=== PATIENT | female | born 1990 | race American Indian/Alaskan Native ===

== ENCOUNTER 2019-08-18 14:51 | Emergency (ER) | payer SELFPAY ==
[2019-08-18] MEDS ORDERED: SODIUM CHLORIDE 0.9% 500 ML 500 ML IV ONE (15:40)
[2019-08-18] MEDS ORDERED: ACETAMINOPHEN 325 MG TAB PO ONE (15:42)
[2019-08-18] MEDS ORDERED: ACETAMINOPHEN 325 MG TAB ONE (15:46)
[2019-08-18 16:08] VITALS: BP 116/62
--- NOTE | 2019-08-18 16:09 | Event Note ---
ED Screening Note Date of service: 08/18/19 Time: 16:06 ED Screening Note: This is a 28 y.o. F. that presents to the ER with fever, congestion, cough, and myalgia x 2 days. Taking Dayquil PMH of sickle cell and bronchitis This initial assessment/diagnostic orders/clinical plan/treatment(s) is/are subject to change based on patients health status, clinical progression and re- assessment by fellow clinical providers in the ED. Further treatment and workup at subsequent clinical providers discretion. Patient/guardian urged not to elope from the ED as their condition may be serious if not clinically assessed and managed. Initial orders include: Labs, EKG, & CXR
[2019-08-18 16:15] LABS: INR 1.12 (0.87-1.13)
--- NOTE | 2019-08-18 16:23 | XRay Report ---
CHEST 1 VIEW INDICATION: Possible sepsis, fever. COMPARISON: None. FINDINGS: Support devices: None. Heart: Within normal limits. Lungs/Pleura: No acute air space or interstitial disease. Additional findings: None. IMPRESSION: No evidence of acute cardiopulmonary disease. Signer Name: Mart Morton MD Signed: 08/18/2019 4:19 PM Workstation Name: [id number]
[2019-08-18 16:27] LABS: Alanine Aminotransferase 18 units/L (7-56); Albumin 4.1 g/dL (3.9-5); BUN/Creatinine Ratio 8; Blood Urea Nitrogen 6 mg/dL (7-17); Hemolysis Index 6
[2019-08-18 16:34] LABS: Hematocrit 39.1 % (30.3-42.9); Mean Corpuscular HGB Conc 33 % (30-34); Mean Corpuscular Volume 81 fl (79-97); Platelet Count 181 K/mm3 (140-440); Red Blood Count 4.85 M/mm3 (3.65-5.03); Red Cell Distribution Width 14.1 % (13.2-15.2)
[2019-08-18 17:41] LABS: Basophils % (Manual) 0 % (0.0-1.8); Eosinophils % (Manual) 0 % (0.0-4.3); Total Cells Counted 100
[2019-08-18 17:42] LABS: Platelet Estimate Consistent w Auto; RBC Morphology Normal
[2019-08-18 18:34] LABS: Bilirubin,Urine NEG (Negative); Blood,Urine NEG (Negative); Color,Urine Yellow (Yellow); Protein,Urine <15 mg/dL mg/dL (Negative); Urobilinogen,Urine < 2.0 mg/dL (<2.0)
--- NOTE | 2019-08-18 21:40 | Emergency Department Report ---
- General Chief Complaint: Upper Respiratory Infection Stated Complaint: FEVER/COLD SYMPTOMS Time Seen by Provider: 08/18/19 21:06 Source: patient Mode of arrival: Ambulatory Limitations: No Limitations - History of Present Illness Initial Comments: Patient is a 28-year-old female up since emergency room with complaints of fever, cough, runny nose, chills times days. Patient states her symptoms are worsening. Patient denies chest pain. Patient denies shortness of breath. [place] ken denies nausea vomiting. Patient denies abdominal pain. Patient states her symptoms are better with rest and worse with exertion. MD Complaint: fever, cough, rhinorrhea -: Sudden, days(s) (2) Severity: severe Severity scale (0 -10): 10 Consistency: constant Improves With: NSAID, OTC cold medicine, rest Worsens With: activity Associated Symptoms: fever, chills, myalgias, rhinorrhea, cough. denies: diaphoresis, headache, nasal congestion, sore throat, stiff neck, chest pain, shortness of breath, abdominal pain, nausea, vomiting, diarrhea, dysuria, rash, confusion, right sweats, weight loss, hoarseness, ear pain Treatments Prior to Arrival: Acetaminophen, Ibuprofen, "cold medicine" - Related Data Previous Rx's Medication Instructions Recorded Last Taken Type Baloxavir Marboxil [Xofluza] 2 tab PO ONCE 1 Days #2 tablet 08/18/19 Unknown Rx Sulfamethoxazole/Trimethoprim 1 each PO BID 10 Days #20 tablet 08/18/19 Unknown Rx [Bactrim DS TAB] Allergies Allergy/AdvReac Type Severity Reaction Status Date / Time aspirin AdvReac Nausea Verified 08/18/19 15:34 ED Review of Systems ROS: Stated complaint: FEVER/COLD SYMPTOMS Other details as noted in HPI Constitutional: chills, fever Eyes: denies: eye pain, eye discharge, vision change ENT: denies: ear pain, throat pain Respiratory: cough. denies: shortness of breath, wheezing Cardiovascular: denies: chest pain, palpitations Endocrine: no symptoms reported Gastrointestinal: denies: abdominal pain, nausea, diarrhea Genitourinary: denies: urgency, dysuria, discharge Musculoskeletal: back pain. denies: joint swelling, arthralgia Skin: denies: rash, lesions Neurological: denies: headache, weakness, paresthesias Psychiatric: denies: anxiety, depression Hematological/Lymphatic: denies: easy bleeding, easy bruising ED Past Medical Hx - Past Medical History Previous Medical History?: Yes Hx Sickle Cell Disease: (sickle cell trait) Hx Psychiatric Treatment: No Additional medical history: sickle cell trait - Surgical History Past Surgical History?: No - Family History Family history: no significant - Social History Smoking Status: Current Some Day Smoker Substance Use Type: None - Medications Home Medications: Home Medications Medication Instructions Recorded Confirmed Last Taken Type Baloxavir Marboxil [Xofluza] 2 tab PO ONCE 1 Days #2 tablet 08/18/19 Unknown Rx Sulfamethoxazole/Trimethoprim 1 each PO BID 10 Days #20 tablet 08/18/19 Unknown Rx [Bactrim DS TAB] ED Physical Exam - General Limitations: No Limitations General appearance: alert, in no apparent distress - Head Head exam: Present: atraumatic, normocephalic - Eye Eye exam: Present: normal appearance - ENT ENT exam: Present: mucous membranes moist, TM's normal bilaterally, normal external ear exam, other - Expanded ENT Exam Expanded Throat exam: Positive: tonsillar erythema. Negative: tonsillomegaly, tonsillar exudate - Neck Neck exam: Present: normal inspection - Respiratory Respiratory exam: Present: normal lung sounds bilaterally. Absent: respiratory distress, wheezes, rales - Cardiovascular Cardiovascular Exam: Present: regular rate, normal rhythm. Absent: systolic murmur, diastolic murmur, rubs, gallop - GI/Abdominal GI/Abdominal exam: Present: soft, normal bowel sounds - Extremities Exam Extremities exam: Present: normal inspection - Back Exam Back exam: Present: normal inspection - Neurological Exam Neurological exam: Present: alert, oriented X3 - Psychiatric Psychiatric exam: Present: normal affect, normal mood - Skin Skin exam: Present: warm, dry, intact, normal color. Absent: rash ED Course Vital Signs 08/18/19 08/18/19 16:06 21:00 Temperature 103 F H 99.7 F H Pulse Rate 120 H 90 Respiratory 22 16 Rate Blood Pressure 116/62 O2 Sat by Pulse 98 100 Oximetry - Reevaluation(s) Reevaluation #1: I discussed clinical findings and results with patient. Patient findings are consistent with the flu. Patient also found to have UTI will give antibiotics. Patient is stable for discharge. Patient will be discharged home. Patient given discharge instructions. Patient voiced understanding of discharge instructions. Patient agrees with plan of care. Patient's heart rate was rechecked and is at 95 08/18/19 21:38 ED Medical Decision Making - Lab Data Result diagrams: 08/18/19 15:50 08/18/19 15:50 - EKG Data -: EKG Interpreted by Me EKG shows normal: sinus rhythm, axis, intervals, QRS complexes, ST-T waves Rate: tachycardia - Radiology Data Radiology results: report reviewed, image reviewed interpreted by me: No acute findings on chest x-ray. - Medical Decision Making pt is a 28-year-old male up since emergency room with upper respiratory infection. Patient found to have a UTI and clinicall findings consistent with flu. Patient given flu treatment and antibiotic for UTI. Patient given discharge instructions. Patient discharged. Patient's x-ray is negative. Patient's labs essentially unremarkable. Patient's heart rate improved. Patient's fever resolved. - Differential Diagnosis cough, flu, URI, UTI, bronchitis, sinusitis, pna Critical care attestation.: If time is entered above; I have spent that time in minutes in the direct care of this critically ill patient, excluding procedure time. ED Disposition Clinical Impression: Influenza, Body aches, Tachycardia Fever Qualifiers: Fever type: due to other condition Qualified Code(s): R50.81 - Fever presenting with conditions classified elsewhere URI (upper respiratory infection) Qualifiers: URI type: unspecified viral URI Qualified Code(s): J06.9 - Acute upper respiratory infection, unspecified UTI (urinary tract infection) Qualifiers: Urinary tract infection type: acute cystitis Hematuria presence: with hematuria Qualified Code(s): N30.01 - Acute cystitis with hematuria Disposition: -01 TO HOME OR SELFCARE Is pt being admited?: No Does the pt Need Aspirin: No Condition: Stable Instructions: Influenza Virus Vaccine (Injection), Urinary Tract Infection in Women (ED), Fever in Adults (ED), Influenza (ED) Additional Instructions: Patient to follow up with primary care in 2-3 days. Patient to return to ER if condition worsens or changes or new symptoms arise. Patient to take Tylenol or ibuprofen when necessary for pain. Patient to take meds as directed. Patient to increase water. Patient to rest. Patient to eat a brat diet Prescriptions: Sulfamethoxazole/Trimethoprim [Bactrim DS TAB] 1 each PO BID 10 Days #20 tablet Baloxavir Marboxil [Xofluza] 2 tab PO ONCE 1 Days #2 tablet Referrals: PRIMARY CARE, [Referring] - 3-5 Days Forms: Work/School Release Form(ED) Time of Disposition: 21:42
== END 2019-08-18 21:56 | disposition home or self-care (01) ==
LOC: ED 14:51
DX: J11.1 Influenza due to unidentified influenza virus with other respiratory manifestations (principal); M79.18 Myalgia, other site; R00.0 Tachycardia, unspecified; N39.0 Urinary tract infection, site not specified; F17.200 Nicotine dependence, unspecified, uncomplicated
CPT/HCPCS: 36415; 71045; 80053; 81001; 82140; 82805; 85007; 85025; 85610; 87040; 87086; 93005; 93010; 99284